=== PATIENT | female | born 1980 | race Caucasian/White ===

== ENCOUNTER 2017-11-27 22:59 | Emergency (ER) | payer OTHER ==
[~2017-11-27] VITALS: Ht 170.1 cm; Wt 79.4 kg
[~2017-11-27 22:59] MED LIST: AMOXICILLIN500 M2 PO; CELEXA20 MG PO; CLARITIN10 MG PO; CLINDAMYCIN HC300 MG PO; FIORICET 325 MG1 TAB PO; HYDROCODONE BIT1 T11 PO; IMITREX PO; INDOMETHACIN50 MG PO; KEFLEX500 MG PO; LEVOFLOXACIN500 MG PO; MACROBID100 M1 PO; MOTRIN800 MG PO; NAPROSYN375 MG PO; NEURONTIN100 MG PO; NKHM; NORCO 325 MG-51 TAB PO; NORCO 5-325 TA1 EACH PO; NORFLEX100 MG PO; PERCOCET 325 MG1 TAB PO; PREDNICOT20 MG PO; TOPAMAX25 M1 PO; TRIMOX500 MG PO; VALTREX500 MG PO; ZOFRAN ODT4 MG SL; ZOFRAN4 MG PO
[2017-11-28] MEDS ORDERED: CYCLOBENZAPRINE5 M3 PO (00:53)
[2017-11-28] MEDS ORDERED: PREDNISONE10 MG PO (00:53)
[2017-11-28] MEDS ORDERED: Motrin,Rufen800 MG PO (00:53)
== END 2017-11-28 01:08 | disposition home or self-care (01) ==
LOC: ED 22:59
DX: M54.31 Sciatica, right side (principal); F17.200 Nicotine dependence, unspecified, uncomplicated; Z79.899 Other long term (current) drug therapy; Z88.8 Allergy status to other drugs, medicaments and biological substances

== ENCOUNTER 2018-10-08 20:07 | Emergency (ER) | payer OTHER ==
[~2018-10-08] VITALS: Ht 170.1 cm; Wt 73.5 kg
[~2018-10-08 20:07] MED LIST changes: +CYCLOBENZAPRINE5 M3 PO; +Motrin,Rufen800 MG PO; +PREDNISONE10 MG PO
[2018-10-08] MEDS ORDERED: TYLENOL325 M1 PO (21:09)
[2018-10-08] MEDS ORDERED: IBU800 MG PO (21:09)
== END 2018-10-08 21:04 | disposition home or self-care (01) ==
LOC: ED 20:07
DX: S60.212A Contusion of left wrist, initial encounter (principal); Z88.8 Allergy status to other drugs, medicaments and biological substances; F10.10 Alcohol abuse, uncomplicated; W18.11XA Fall from or off toilet without subsequent striking against object, initial encounter; Y93.89 Activity, other specified; Y92.89 Other specified places as the place of occurrence of the external cause; Y99.8 Other external cause status

== ENCOUNTER 2020-01-02 17:36 | Emergency (ER) | payer OTHER ==
[~2020-01-02] VITALS: Ht 170.1 cm; Wt 78.0 kg
[~2020-01-02 17:36] MED LIST changes: +IBU800 MG PO; +TYLENOL325 M1 PO
[2020-01-03 07:04] LABS: HEPATITIS B SURFACE AG Negative (Negative); HEPATITIS C AB <0.1 (0.0-0.9)
== END 2020-01-02 18:50 | disposition home or self-care (01) ==
LOC: ED 17:36
PROVIDERS: Nurse Practitioner Family
DX: S61.231A Puncture wound without foreign body of left index finger without damage to nail, initial encounter (principal); G43.909 Migraine, unspecified, not intractable, without status migrainosus; Z88.8 Allergy status to other drugs, medicaments and biological substances; W46.0XXA Contact with hypodermic needle, initial encounter; Y93.89 Activity, other specified; Y92.89 Other specified places as the place of occurrence of the external cause; Y99.0 Civilian activity done for income or pay

== ENCOUNTER 2020-03-17 00:09 | Emergency (ER) | payer OTHER ==
[2020-03-17] MEDS ORDERED: ANAPROX DS550 MG PO (00:26)
[2020-03-17] MEDS ORDERED: AUGMENTIN 875875 MG PO (00:26)
== END 2020-03-17 01:01 | disposition home or self-care (01) ==
LOC: ED 00:09
DX: K08.89 Other specified disorders of teeth and supporting structures (principal); G43.909 Migraine, unspecified, not intractable, without status migrainosus; Z88.8 Allergy status to other drugs, medicaments and biological substances; Z87.891 Personal history of nicotine dependence

== ENCOUNTER 2020-07-30 14:33 | Emergency (ER) | payer OTHER ==
[~2020-07-30 14:33] MED LIST changes: +ANAPROX DS550 MG PO; +AUGMENTIN 875875 MG PO
[2020-07-30] MEDS ORDERED: CYCLOBENZAPRINE5 M3 PO (16:34)
[2020-07-30] MEDS ORDERED: Motrin,Rufen800 MG PO (16:34)
== END 2020-07-30 16:30 | disposition home or self-care (01) ==
LOC: ED 14:33
DX: S46.911A Strain of unspecified muscle, fascia and tendon at shoulder and upper arm level, right arm, initial encounter (principal); R07.89 Other chest pain; F17.200 Nicotine dependence, unspecified, uncomplicated; Z88.8 Allergy status to other drugs, medicaments and biological substances; X50.1XXA Overexertion from prolonged static or awkward postures, initial encounter; Y93.89 Activity, other specified; Y92.89 Other specified places as the place of occurrence of the external cause; Y99.8 Other external cause status

== ENCOUNTER 2021-04-01 20:56 | Emergency (ER) | payer OTHER ==
[~2021-04-01] VITALS: Ht 170.1 cm; Wt 74.8 kg
[2021-04-01] MEDS ORDERED: MEDROL DOSEPAK4 MG PO (23:07)
== END 2021-04-01 23:36 | disposition home or self-care (01) ==
LOC: ED 20:56
DX: M12.811 Other specific arthropathies, not elsewhere classified, right shoulder (principal); Z88.8 Allergy status to other drugs, medicaments and biological substances; Z79.899 Other long term (current) drug therapy; Z98.890 Other specified postprocedural states

== ENCOUNTER 2022-02-11 02:47 | Emergency (ER) | payer OTHER ==
[~2022-02-11] VITALS: Ht 167.6 cm; Wt 72.6 kg
[~2022-02-11 02:47] MED LIST changes: +MEDROL DOSEPAK4 MG PO
== END 2022-02-11 06:50 | disposition home or self-care (01) ==
LOC: ED 02:47
DX: G43.909 Migraine, unspecified, not intractable, without status migrainosus (principal); Z88.8 Allergy status to other drugs, medicaments and biological substances

== ENCOUNTER 2022-04-15 12:02 | Emergency (ER) | payer OTHER ==
[~2022-04-15] VITALS: Wt 79.4 kg
[2022-04-15 12:29] LABS: BASO % 0.5 % (0.0-1.0); EOS # 0.2 10*3/uL (0.0-0.4); EOS % 2.8 % (1.0-4.0); HEMATOCRIT 36.1 % (37.0-47.0); LYMPH % 30.2 % (27.0-41.0); MEAN CELL VOLUME 80.6 fl (81.0-99.0); MEAN CORPUSCULAR HGB 25.7 pg (27.0-31.0); MEAN CORPUSCULAR HGB CONC 31.9 g/dl (33.0-37.0); MONO # 0.3 10*3/uL (0.1-1.0); MONO % 5.2 % (3.0-9.0); NEUT % 61.1 % (47.0-73.0); PLATELET COUNT AUTOMATED 317 10*3/uL (130-400); RED BLOOD COUNT 4.48 10*6/uL (4.10-5.10); RED CELL DISTRI WIDTH 14.3 % (0-14.5); WHITE BLOOD COUNT 6.5 10*3/uL (4.8-10.8)
[2022-04-15 12:47] LABS: INTERNATIONAL NORM RATIO 0.9 (2.0-3.5)
[2022-04-15 12:52] LABS: ALKALINE PHOSPHATASE 80 U/L (45-117); BUN 7 mg/dl (7-24); CHLORIDE 108 mmol/L (98-107); CREATININE 0.62 mg/dL (0.55-1.02); POTASSIUM 3.7 mmol/L (3.5-5.1); SGOT/AST 13 IU/L (3-35); SGPT/ALT 13 U/L (12-78); SODIUM 140 mmol/L (136-145); TOTAL PROTEIN 7.1 gm/dL (6.4-8.2)
[2022-04-15] MEDS ORDERED: PREDNISONE20 M1 PO (14:35)
== END 2022-04-15 15:10 | disposition home or self-care (01) ==
LOC: ED 12:02
PROVIDERS: Physician Assistant
DX: R20.2 Paresthesia of skin (principal); Z88.8 Allergy status to other drugs, medicaments and biological substances

== ENCOUNTER 2022-09-09 20:47 | Emergency (ER) | payer OTHER ==
[~2022-09-09] VITALS: Ht 170.1 cm; Wt 81.6 kg
[~2022-09-09 20:47] MED LIST changes: +PREDNISONE20 M1 PO
[2022-09-09] MEDS ORDERED: SEPTDS PO (21:03)
== END 2022-09-09 22:39 | disposition home or self-care (01) ==
LOC: ED 20:47
DX: S60.222A Contusion of left hand, initial encounter (principal); Z88.8 Allergy status to other drugs, medicaments and biological substances; Z79.2 Long term (current) use of antibiotics; W23.0XXA Caught, crushed, jammed, or pinched between moving objects, initial encounter; Y93.89 Activity, other specified; Y92.239 Unspecified place in hospital as the place of occurrence of the external cause; Y99.0 Civilian activity done for income or pay

== ENCOUNTER 2023-01-15 19:17 | Emergency (ER) | payer OTHER ==
[~2023-01-15] VITALS: Ht 170.1 cm; Wt 79.4 kg
[~2023-01-15 19:17] MED LIST changes: +SEPTDS PO
[2023-01-15] MEDS ORDERED: IMITREX25 M1 PO (19:33)
[2023-01-15] MEDS ORDERED: MAXALT10 MG PO (19:33)
[2023-01-15 20:21] LABS: BASO % 0.4 % (0.0-1.0); EOS # 0.2 10*3/uL (0.0-0.4); EOS % 1.6 % (1.0-4.0); HEMATOCRIT 38.8 % (37.0-47.0); LYMPH # 2.3 10*3/uL (1.3-4.4); LYMPH % 21.5 % (27.0-41.0); MEAN CELL VOLUME 79.2 fl (81.0-99.0); MEAN CORPUSCULAR HGB 25.1 pg (27.0-31.0); MEAN CORPUSCULAR HGB CONC 31.7 g/dl (33.0-37.0); MEAN PLATELET VOLUME 9.1 fl (9.6-12.3); MONO # 0.5 10*3/uL (0.1-1.0); MONO % 4.5 % (3.0-9.0); NEUT # 7.6 10*3/uL (2.3-7.9); NEUT % 71.7 % (47.0-73.0); PLATELET COUNT AUTOMATED 364 10*3/uL (130-400); RED CELL DISTRI WIDTH 15.6 % (0-14.5); WHITE BLOOD COUNT 10.6 10*3/uL (4.8-10.8)
[2023-01-15 20:40] LABS: ALKALINE PHOSPHATASE 99 U/L (46-116); BUN 7 mg/dl (9-23); CHLORIDE 105 mmol/L (98-107); POTASSIUM 3.5 mmol/L (3.4-5.1); SGPT/ALT 15 U/L (10-49); TOTAL PROTEIN 7.4 gm/dL (6.0-8.0)
== END 2023-01-16 00:24 | disposition home or self-care (01) ==
LOC: ED 19:17
PROVIDERS: Emergency Medicine
DX: R07.9 Chest pain, unspecified (principal); Z20.822 Contact with and (suspected) exposure to COVID-19; G43.909 Migraine, unspecified, not intractable, without status migrainosus